=== PATIENT | male | born 1995 | race Two or more races ===

== ENCOUNTER 2025-03-31 22:47 | Emergency (ER) | payer SELFPAY ==
[~2025-03-31] VITALS: Ht 180.3 cm; Wt 171.7 kg
[2025-03-31] MEDS: HYDROcodone-ACET 10/325MG TAB PO ONE (23:15)
--- NOTE | 2025-03-31 23:16 | ED.PDOC ---
GI ASSESSMENT HPI Comments 29-year-old male who came to ER for flank pain/abdominal pain. Patient denies any medical problems or abdominal surgeries. States for the past week, he has been having intermittent episodes of right flank pain, radiating to his right upper quadrant, which worsens after meals, or whenever he stands up. Denies any dysuria or gross hematuria, but states he feels a pressure on his right flank whenever he urinates. Denies any fever nausea or vomiting. Chief Complaint: Flank Pain Time Seen by MD: 23:15 Reviewed Notes: Nurses Notes Allergies: Coded Allergies: No Known Drug Allergy (Verified Allergy, Unknown, 03/31/25) Home Meds Active Scripts Sulfamethoxazole W/Trimethopri (Bactrim Ds Tablet) 1 Tab Tb, 1 TAB PO BID for 7 Days, #14 TAB Prov:LEWIS ROMERO MD 04/01/25 Amlodipine Besylate (Amlodipine Besylate) 5 Mg Tab, 1 TAB PO DAILY, #90 TAB 3 Refills Prov:LEWIS ROMERO MD 04/01/25 Amlodipine Besylate (Amlodipine Besylate) 5 Mg Tab, 1 TAB PO DAILY, #90 TAB 3 Refills Prov:LEWIS ROMERO MD 04/01/25 Sulfamethoxazole W/Trimethopri (Bactrim Ds Tablet) 1 Tab Tb, 1 TAB PO BID for 7 Days, #14 TAB Prov:LEWIS ROMERO MD 04/01/25 Information Source: Patient Mode of Arrival: Ambulatory Timing: Days Duration: Intermittent Quality: Other (Pressure) Vomitus: None Stool: Normal Severity: Moderate Recent: None Recent Hx of: None Pain Location: RUQ, Other (Right flank) Associated sign and symptoms: Abdominal Pain Past Medical History PAST MEDICAL HISTORY: Denies Surgical History: Denies all surgeries Family History Family History: Reviewed,noncontributory to illness Social History Smoker: Non-Smoker Alcohol: Denies ETOH Use Drugs: Denies Drug Use Lives In: Home Constitutional: denies: chills, diaphoresis, fatigue, fever, malaise, sweats, weakness, others EENTM: denies: blurred vision, double vision, ear bleeding, ear discharge, ear drainage, ear pain, ear ringing, eye pain, eye redness, hearing loss, mouth pain, mouth swelling, nasal discharge, nose bleeding, nose congestion, nose pain, photophobia, tearing, throat pain, throat swelling, voice changes, others Respiratory: denies: cough, hemoptysis, orthopnea, SOB at rest, shortness of breath, SOB with excertion, stridor, wheezing, others Cardiovascular: denies: chest pain, dizzy spells, diaphoresis, Dyspnea on exertion, edema, irregular heart beat, left arm pain, lightheadedness, palpitations, PND, syncope, others Gastrointestinal: reports: abdominal pain (Right upper quadrant); denies: abdomen distended, blood streaked bowels, constipated, diarrhea, dysphagia, difficulty swallowing, hematemesis, melena, nausea, poor appetite, poor fluid intake, rectal bleeding, rectal pain, vomiting, others Genitourinary: reports: flank pain (Right); denies: burning, dysuria, frequency, hematuria, incontinence, penile discharge, penile sore, pain, testicle pain, testicle swelling, urgency, others Neurological: denies: dizziness, fainting, headache, left sided numbness, left sided weakness, numbness, paresthesia, pre-existing deficit, right sided numbness, right sided weakness, seizure, speech problems, tingling, tremors, weakness, others Musculoskeletal: denies: back pain, gout, joint pain, joint swelling, muscle pain, muscle stiffness, neck pain, others Integumetry: denies: bruises, change in color, change in hair/nails, dryness, laceration, lesions, lumps, rash, wounds, others Allergic/Immunocompromised: denies: Difficulty Healing, Frequent Infections, Hives, Itching, others Hematologic/Lymphatic: denies: anemia, blood clots, easy bleeding, easy bruising, swollen glands, others Endocrine: denies: excessive hunger, excessive sweating, excessive thirst, excessive urination, flushing, intolerance to cold, intolerance to heat, unexplained weight gain, unexplained weight loss, others Psychiatric: denies: anxiety, bipolar disorder, depression, hopeless, panic disorder, schizophrenia, sleepless, suicidal, others Physical Exam General Appearance: No Apparent Distress, Normal HEENT: Normal ENT Inspection, Pharynx Normal, TMs Normal Neck: Full Range of Motion, Non-Tender, Normal, Normal Inspection Respiratory: Chest Non-Tender, Lungs Clear, No Accessory Muscle Use, No Respiratory Distress, Normal Breath Sounds Cardiovascular: No Edema, No JVD, No Murmur, No Gallop, Normal Peripheral Pulses, Regular Rate/Rhythm Breast Exam: Deferred Gastrointestinal: No Organomegaly, Non Tender, No Pulsatile Mass, Normal Bowel Sounds, Soft Genitalia: Deferred Pelvic: Deferred Rectal: Deferred Extremities: No calf tenderness, Normal capillary refill, Normal inspection, Normal range of motion, Non-tender, No pedal edema Musculoskeletal : Apperance: Normal Neurologic: Alert, rack puncher II-XII nml as Tested, No Motor Deficits, Normal Affect, Normal Mood, No Sensory Deficits Cerebellar Function: Normal Reflexes: Normal Skin: Dry, Normal Color, Warm Lymphatic: No Adenopathy Was a procedure done? Was a procedure done?: No GI differential Dx Differential Diagnosis: Cholecystitis, Diverticular disease, Gastritis/PUD, Gastroenteritis, Hernia, Hepatitis, Pancreatitis, UTI, Urolithiasis X-Ray, Labs, Meds, VS Vital Signs Date Time Temp Pulse Resp B/P (MAP) Pulse Ox O2 Delivery O2 Flow Rate FiO2 04/01/25 02:00 173/105 04/01/25 01:59 103 18 98 Room Air 04/01/25 01:10 98.3 104 16 163/112 (129) 95 98.3 03/31/25 22:49 98.6 125 22 151/105 96 98.6 Lab Test 03/31/25 23:11 03/31/25 23:00 Range/Units White Blood Count 11.1 H 4.4-10.8 10^3/uL Red Blood Count 5.79 4.5-5.90 10^6/uL Hemoglobin 13.6 13.5-17.5 g/dL Hematocrit 41.8 41.0-53.0 % Mean Corpuscular Volume 72.1 L 80.0-100.0 fL Mean Corpuscular Hemoglobin 23.5 L 28.0-32.0 pg Mean Corpuscular Hemoglobin Concent 32.6 32.0-36.0 g/dL Red Cell Distribution Width 15.4 H 11.8-14.3 % Platelet Count 332 140-450 10^3/uL Mean Platelet Volume 7.8 6.9-10.8 fL Neutrophils (%) (Auto) 63.5 37.0-80.0 % Lymphocytes (%) (Auto) 31.2 10.0-50.0 % Monocytes (%) (Auto) 3.5 0.0-12.0 % Eosinophils (%) (Auto) 1.4 0.0-7.0 % Basophils (%) (Auto) 0.4 0.0-2.0 % Neutrophils # (Auto) 7.0 1.6-8.6 10 ^3/uL Lymphocytes # (Auto) 3.4 0.4-5.4 10 ^3/uL Monocytes # (Auto) 0.4 0-1.3 10 ^3/uL Eosinophils # (Auto) 0.1 0-0.8 10 ^3/uL Basophils # (Auto) 0 0-0.2 10 ^3/uL Nucleated Red Blood Cells 0.0 % Sodium Level 138 136-145 mmol/L Potassium Level 3.2 L 3.5-5.1 mmol/L Chloride Level 102 98-107 mmol/L Carbon Dioxide Level 24 20-31 mmol/L Anion Gap 12 5-15 Blood Urea Nitrogen 10 9-23 mg/dL Creatinine 1.17 0.700-1.30 mg/dL Glomerular Filtration Rate Calc 85 >90 mL/min BUN/Creatinine Ratio 8.5 L 10.0-20.0 Serum Glucose 149 H 74-106 mg/dL Calcium Level 9.4 8.7-10.4 mg/dL Total Bilirubin 0.3 0.2-1.0 mg/dL Aspartate Amino Transferase (AST) 36 13-40 U/L Alanine Aminotransferase (ALT) 29 7-40 U/L Alkaline Phosphatase 123 H 46-116 U/L Total Protein 9.3 H 5.7-8.2 g/dL Albumin 4.4 3.2-4.8 g/dL Lipase 41 12-53 U/L Urine Color Yellow Yellow Urine Clarity Turbid H Clear Urine pH 6.0 5.0-9.0 Urine Specific [place] 1.025 1.001-1.035 Urine Protein 3+ H Negative Urine Ketones Negative Negative Urine Blood 2+ H Negative /uL Urine Nitrite Negative Negative Urine Bilirubin Negative Negative Urine Urobilinogen Normal Negative mg/dL Urine Leukocyte Esterase 1+ Negative /uL Urine RBC 72 0 - 3 /hpf Urine Microscopic WBC 35 H 0-3 /HPF Urine Squamous Epithelial Cells Few <5 /hpf Urine Bacteria None seen None Seen /hpf Urine Hyaline Casts Mod 0 - 2 /lpf Urine Granular Casts Mod 0 /lpf Urine Glucose Normal Normal mg/dL Current Medications Medications (Trade) Dose Ordered Sig/Sarika Route Start Time Stop Time Status Last Admin Acetaminophen/ Hydrocodone Bitart ([place] 10/325MG Tab) 1 tab ONCE ONCE PO 03/31/25 23:15 03/31/25 23:16 DC 03/31/25 23:15 Lisinopril (Zestril Tablet) 20 mg ONCE ONCE PO 04/01/25 01:30 04/01/25 01:31 DC 04/01/25 02:00 Ceftriaxone Sodium (Rocephin) 1,000 mg ONCE ONCE IM 04/01/25 01:30 04/01/25 01:31 DC 04/01/25 01:59 Potassium Chloride (Klor-Con Tablet) 10 meq ONCE ONCE PO 04/01/25 01:30 04/01/25 01:31 DC 04/01/25 01:59 Exam: CT CT AB PEL WO CON-NO ORAL OR IV History: right flank pain Comparison Study: None TECHNIQUE: Multidetector CT of the abdomen was performed from lung bases to pubic symphysis. Imaging was performed without IV contrast. Axial, coronal and sagittal multiplanar reformats were obtained from the axial data set by the technologist. Radiation Dose Information: CT Dose: CTDI volume is 27.85 mGy. Dose-length product is 1718.53 mGy*cm FINDINGS: Evaluation of solid organs is limited due to lack of intravenous contrast use. Findings: Lung Bases: No acute or significant lung base finding. Normal heart size. No pleural or pericardial effusion. Liver: The liver is increased in size. minimal hepatic steatosis. No focal lesions. Gallbladder and Biliary Tree: Unremarkable Spleen: Unremarkable Pancreas: The pancreas is grossly normal in appearance. Adrenal Glands: Unremarkable Kidneys: Kidneys are grossly normal without calculi or hydronephrosis. Bladder: Grossly unremarkable for degree of distention. Bowel: The stomach is grossly normal in appearance. Small bowel and colon are normal in caliber and distribution. The appendix is normal. Ascites: Absent Lymphadenopathy: No mesenteric, retroperitoneal or periportal lymphadenopathy. Abdominal Wall and Mesentery: Unremarkable. Vasculature: The visualized abdominal aorta is normal in size and caliber. Evaluation of abdominal and pelvic vessels is limited due to lack of intravenous contrast. Pelvic Organs: Unremarkable Musculoskeletal: No aggressive focal bony lesions, acute fractures or dislocation. Soft tissues: Unremarkable IMPRESSION: 1. No acute abdominal or pelvic finding. Time of 1ST Reevaluation: 23:12 Reevaluation 1ST: Unchanged Patient Education/Counseling: Diagnosis, Treatment Family Education/Counseling: Diagnosis, Treatment SEPSIS Sepsis Screen Date sepsis recognized/suspect: Mar 31, 2025 Time Sepsis recognized/suspect: 2251 Recent Procedure: No On Antibiotic Therapy: No Respiratory Rate >20: No Heart Rate >90: No Temp<36 C (96.8 F) or >38.3 C: No SBP <90 or MAP <65 mmHG: No New Acute Mental Status Change: No Is the patient on CPAP, BIPAP,: No Physician Orders Ct Ab Pel Wo Con-No Oral Or Iv (03/31/25 23:04) Vital Signs Date Time Temp Pulse Resp B/P (MAP) Pulse Ox O2 Delivery O2 Flow Rate FiO2 04/01/25 02:00 173/105 04/01/25 01:59 103 18 98 Room Air 04/01/25 01:10 98.3 104 16 163/112 (129) 95 98.3 03/31/25 22:49 98.6 125 22 151/105 96 98.6 Laboratory Tests Test 03/31/25 23:11 White Blood Count 11.1 10^3/uL (4.4-10.8) H Medications Medications Dose Ordered Sig/Sarika Route Start Time Stop Time Status Last Admin Dose Admin Acetaminophen/ Hydrocodone Bitart 1 tab ONCE ONCE PO 03/31/25 23:15 03/31/25 23:16 DC 03/31/25 23:15 Ceftriaxone Sodium 1,000 mg ONCE ONCE IM 04/01/25 01:30 04/01/25 01:31 DC 04/01/25 01:59 Lisinopril 20 mg ONCE ONCE PO 04/01/25 01:30 04/01/25 01:31 DC 04/01/25 02:00 Potassium Chloride 10 meq ONCE ONCE PO 04/01/25 01:30 04/01/25 01:31 DC 04/01/25 01:59 Departure 1 Departure Time of Disposition: 01:00 Impression: Primary Impression: Right flank pain Additional Impressions: UTI (urinary tract infection) Hypertension Disposition: 01 HOME / SELF CARE / HOMELESS Condition: Stable e-Prescriptions Sulfamethoxazole W/Trimethopri (Bactrim Ds Tablet) 1 Tab Tb 1 TAB PO BID for 7 Days, #14 TAB Prov: LEWIS ROMERO MD 04/01/25 Amlodipine Besylate (Amlodipine Besylate) 5 Mg Tab 1 TAB PO DAILY, #90 TAB 3 Refills Prov: LEWIS ROMERO MD 04/01/25 Amlodipine Besylate (Amlodipine Besylate) 5 Mg Tab 1 TAB PO DAILY, #90 TAB 3 Refills Prov: LEWIS ROMERO MD 04/01/25 Sulfamethoxazole W/Trimethopri (Bactrim Ds Tablet) 1 Tab Tb 1 TAB PO BID for 7 Days, #14 TAB Prov: LEWIS ROMERO MD 04/01/25 Discharged With: Self Critical Care Note Critical Care Time?: No Stability Stability form required: No Heart Score Heart Score: Heart Score Response (Comments) Value History N/A 0 EKG N/A 0 Age N/A 0 Risk Factors N/A 0 Troponin N/A 0 Total 0 I personally scribed for LEWIS ROMERO MD ([email or web address]) on 03/31/25 at 23:16. Electronically submitted by Jaquan Hooker ([email or web address] I personally scribed for LEWIS ROMERO MD ([email or web address]) on 04/01/25 at 01:23. Electronically submitted by Jaquan Hooker ([email or web address]). LEWIS ROMERO MD Mar 31, 2025 23:16
[2025-03-31 23:32] LABS: Hematocrit 41.8 % (41.0-53.0); Hemoglobin 13.6 g/dL (13.5-17.5); Mean Corpuscular Hemoglobin 23.5 pg (28.0-32.0); Mean Corpuscular Volume 72.1 fL (80.0-100.0); Nucleated Red Blood Cells % 0.0 %
[2025-03-31 23:51] LABS: Alanine Aminotransferase 29 U/L (7-40); Albumin 4.4 g/dL (3.2-4.8); Anion Gap 12 (5-15); BUN/Creatinine Ratio 8.5 (10.0-20.0); Bilirubin, Total 0.3 mg/dL (0.2-1.0); Blood Urea Nitrogen 10 mg/dL (9-23); Calcium 9.4 mg/dL (8.7-10.4); Carbon Dioxide 24 mmol/L (20-31); Chloride 102 mmol/L (98-107); Lipase 41 U/L (12-53); Sodium 138 mmol/L (136-145)
[2025-03-31 23:53] LABS: Alkaline Phosphatase 123 U/L (46-116); Glucose 149 mg/dL (74-106); Potassium 3.2 mmol/L (3.5-5.1); Total Protein 9.3 g/dL (5.7-8.2)
[2025-04-01 00:22] LABS: Urine Protein, UAD 3+ (Negative)
--- NOTE | 2025-04-01 00:49 | DVH ---
Exam: CT CT AB PEL WO CON-NO ORAL OR IV History: right flank pain Comparison Study: None TECHNIQUE: Multidetector CT of the abdomen was performed from lung bases to pubic symphysis. Imaging was performed without IV contrast. Axial, coronal and sagittal multiplanar reformats were obtained fr om the axial data set by the technologist. Radiation Dose Information: CT Dose: CTDI volume is 27.85 mGy. Dose-length product is 1718.53 mGy*cm FINDINGS: Evaluation of solid organs is limited due to lack of intravenous contrast use. Findings: Lung Bases: No acute or significant lung base finding. Normal heart size. No pleural or pericardial effusion. Liver: The liver is increased in size. minimal hepatic steatosis. No focal lesions. Gallbladder and Biliary Tree: Unremarkable Spleen: Unremarkable Pancreas: The pancreas is grossly normal in appearance. Adrenal Glands: Unremarkable Kidneys: Kidneys are grossly normal without calculi or hydronephrosis. Bladder: Grossly unremarkable for degree of distention. Bowel: The stomach is grossly normal in appearance. Small bowel and colon are normal in caliber and d istribution. The appendix is normal. Ascites: Absent Lymphadenopathy: No mesenteric, retroperitoneal or periportal lymphadenopathy. Abdominal Wall and Mesentery: Unremarkable. Vasculature: The visualized abdominal aorta is normal in size and caliber. Evaluation of abdominal a nd pelvic vessels is limited due to lack of intravenous contrast. Pelvic Organs: Unremarkable Musculoskeletal: No aggressive focal bony lesions, acute fractures or dislocation. Soft tissues: Unremarkable IMPRESSION: 1. No acute abdominal or pelvic finding.
[2025-04-01 01:10] VITALS: BP 163/112; TEMP 98.3
[2025-04-01] MEDS ORDERED: BACDST PO (01:22)
[2025-04-01] MEDS ORDERED: AMLO1TAB22 PO (01:22)
[2025-04-01 01:59] VITALS: PULSE 103; RESP 18; O2SAT 98
[2025-04-01] MEDS: cefTRIAXone SOD 1,000 MG VL IM ONE (01:59)
[2025-04-01] MEDS: POTASSIUM CHL 10 Meq TABLET PO ONE (01:59)
[2025-04-01] MEDS: LISINOPRIL 20 MG TAB PO ONE (02:00)
== END 2025-04-01 02:09 | disposition home or self-care (01) ==
LOC: ER 22:47
DX: R10.11 Right upper quadrant pain (principal); N39.0 Urinary tract infection, site not specified; I10 Essential (primary) hypertension
CPT/HCPCS: 36415; 74176; 80053; 81001; 83690; 85025; 96372; 99285; J0696

== ENCOUNTER 2025-07-22 03:28 | Emergency (ER) | payer SELFPAY ==
[~2025-07-22] VITALS: Ht 180.3 cm; Wt 172.0 kg
[~2025-07-22 03:28] MED LIST: AMLO1TAB22 PO; BACDST PO
--- NOTE | 2025-07-22 03:44 | ED.PDOC ---
History of Present Illness HPI Comments 29-year-old male who came to ER with [facility] for prison check. Patient is morbidly obese, brought in for prison check, high blood pressure. Patient laying handcuffed on the backseat of a police cruiser. Patient refuses to be seen and refuses any exams to be done on him Chief Complaint: Nursing Home Check Time Seen by MD: 03:43 Primary Care Provider: DIONI Hartman Notes: Nurses Notes Allergies: Coded Allergies: No Known Drug Allergy (Verified Allergy, Unknown, 03/31/25) Home Meds Active Scripts Sulfamethoxazole W/Trimethopri (Bactrim Ds Tablet) 1 Tab Tb, 1 TAB PO BID for 7 Days, #14 TAB Prov:LEWIS ROMERO MD 04/01/25 Amlodipine Besylate (Amlodipine Besylate) 5 Mg Tab, 1 TAB PO DAILY, #90 TAB 3 Refills Prov:LEWIS ROMERO MD 04/01/25 Amlodipine Besylate (Amlodipine Besylate) 5 Mg Tab, 1 TAB PO DAILY, #90 TAB 3 Refills Prov:LEWIS ROMERO MD 04/01/25 Sulfamethoxazole W/Trimethopri (Bactrim Ds Tablet) 1 Tab Tb, 1 TAB PO BID for 7 Days, #14 TAB Prov:LEWIS ROMERO MD 04/01/25 Information Source: Patient Mode of Arrival: SO Past Medical History PAST MEDICAL HISTORY: Denies Past Medical History (Other): Morbid obesity Surgical History: Denies all surgeries Family History Family History: Reviewed,noncontributory to illness Social History Smoker: Non-Smoker Alcohol: Denies ETOH Use Drugs: Denies Drug Use Lives In: Home Constitutional: denies: chills, diaphoresis, fatigue, fever, malaise, sweats, weakness, others EENTM: denies: blurred vision, double vision, ear bleeding, ear discharge, ear drainage, ear pain, ear ringing, eye pain, eye redness, hearing loss, mouth pain, mouth swelling, nasal discharge, nose bleeding, nose congestion, nose pain, photophobia, tearing, throat pain, throat swelling, voice changes, others Respiratory: denies: cough, hemoptysis, orthopnea, SOB at rest, shortness of breath, SOB with excertion, stridor, wheezing, others Cardiovascular: denies: chest pain, dizzy spells, diaphoresis, Dyspnea on exertion, edema, irregular heart beat, left arm pain, lightheadedness, palpitations, PND, syncope, others Gastrointestinal: denies: abdomen distended, abdominal pain, blood streaked bowels, constipated, diarrhea, dysphagia, difficulty swallowing, hematemesis, melena, nausea, poor appetite, poor fluid intake, rectal bleeding, rectal pain, vomiting, others Genitourinary: denies: burning, dysuria, flank pain, frequency, hematuria, incontinence, penile discharge, penile sore, pain, testicle pain, testicle swelling, urgency, others Neurological: denies: dizziness, fainting, headache, left sided numbness, left sided weakness, numbness, paresthesia, pre-existing deficit, right sided numbness, right sided weakness, seizure, speech problems, tingling, tremors, weakness, others Musculoskeletal: denies: back pain, gout, joint pain, joint swelling, muscle pain, muscle stiffness, neck pain, others Integumetry: denies: bruises, change in color, change in hair/nails, dryness, laceration, lesions, lumps, rash, wounds, others Allergic/Immunocompromised: denies: Difficulty Healing, Frequent Infections, Hives, Itching, others Hematologic/Lymphatic: denies: anemia, blood clots, easy bleeding, easy bruising, swollen glands, others Endocrine: denies: excessive hunger, excessive sweating, excessive thirst, excessive urination, flushing, intolerance to cold, intolerance to heat, unexplained weight gain, unexplained weight loss, others Psychiatric: denies: anxiety, bipolar disorder, depression, hopeless, panic disorder, schizophrenia, sleepless, suicidal, others Physical Exam General Appearance: No Apparent Distress, Normal HEENT: Normal ENT Inspection, Pharynx Normal, TMs Normal Neck: Full Range of Motion, Non-Tender, Normal, Normal Inspection Respiratory: Chest Non-Tender, Lungs Clear, No Accessory Muscle Use, No Respiratory Distress, Normal Breath Sounds Cardiovascular: No Edema, No JVD, No Murmur, No Gallop, Normal Peripheral Pulses, Regular Rate/Rhythm Breast Exam: Deferred Gastrointestinal: No Organomegaly, Non Tender, No Pulsatile Mass, Normal Bowel Sounds, Soft Genitalia: Deferred Pelvic: Deferred Rectal: Deferred Extremities: No calf tenderness, Normal capillary refill, Normal inspection, Normal range of motion, Non-tender, No pedal edema Musculoskeletal : Apperance: Normal Neurologic: Alert, pattern puncher II-XII nml as Tested, No Motor Deficits, Normal Affect, Normal Mood, No Sensory Deficits Cerebellar Function: Normal Reflexes: Normal Skin: Dry, Normal Color, Warm Lymphatic: No Adenopathy Was a procedure done? Was a procedure done?: No Differential Dx Considerations may include: Morbid obesity, prison check, medical clearance for incarceration X-Ray, Labs, Meds, VS Vital Signs Date Time Temp Pulse Resp B/P (MAP) Pulse Ox O2 Delivery O2 Flow Rate FiO2 07/22/25 04:42 120 18 177/97 (123) 98 07/22/25 04:42 120 18 93 Room Air* 0 21 07/22/25 04:00 98.3 121 18 177/97 92 98.3 Time of 1ST Reevaluation: 03:39 Reevaluation 1ST: Unchanged Patient Education/Counseling: Diagnosis, Treatment Family Education/Counseling: No Family Present Comments Patient and has hypertension. However he admittedly is noncompliant to his medications. He has no symptoms. He is brought here for blood pressure checkup. Patient declined any kind of examination or testing to be done. He also declined any treatments. However he is very aggressive and combative with shared of officer. I will try to calm the patient by giving him a dose of Haldol and Benadryl in order to prevent him from having to be physically subdued and potentially injured by law enforcement. 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 Electronically submitted by Jaquan Hooker ([facility]). EDOUARD MACDONALD MD Jul 22, 2025 03:44
[2025-07-22] MEDS: diphenhydrAMINE HCL 50 MG/1 ML VL ONE (03:50)
[2025-07-22 04:00] VITALS: TEMP 98.3
[2025-07-22] MEDS ORDERED: diphenhydrAMINE HCL 50 MG/1 ML VL IM ONE (04:00)
[2025-07-22] MEDS ORDERED: HALOPERIDOL LACTATE 5 MG/ML INJ VIAL IM ONE (04:00)
[2025-07-22] MEDS: HALOPERIDOL LACTATE 5 MG/ML INJ VIAL ONE (04:41)
[2025-07-22 04:42] VITALS: BP 177/97; PULSE 120; RESP 18; O2SAT 93
== END 2025-07-22 05:01 | disposition home or self-care (01) ==
LOC: EDBD 03:28 → ER 03:28
DX: F91.9 Conduct disorder, unspecified (principal); I10 Essential (primary) hypertension; Z91.199 Patient's noncompliance with other medical treatment and regimen due to unspecified reason

== ENCOUNTER 2025-07-22 06:39 | Emergency (ER) | payer SELFPAY ==
[~2025-07-22] VITALS: Ht 182.9 cm
--- NOTE | 2025-07-22 07:24 | ED.PDOC ---
Altered Mental Status HPI Comments 29 y.o male with PMHx of schizophrenia, presents to the ED via EMS for an evaluation of altered mental status. Patient was seen at this facility earlier today d/t care home check and hypertensive episode. He was combative and verbally aggressive with alvina. In the ED, patient was given Haldol and Benadryl and transported by alvina back to care home however medical doctor deemed patient unresponsive and was sent back to the ED with alvina via EMS. [facility] reports patient has episodes where he will be sleeping and wake up combative. He was able to ambulate out of the alvina's vehicle and onto EMS gurney. Upon ED arrival, patient is asleep at bedside. EMS mentions patient was also combative with them on transportation. Patient remains hypertensive with most recent reading BP of 166/131 at bedside. Time Seen by MD: 07:13 Primary Care Provider: DIONI Reviewed Notes: Nurses Notes, Garbage Man Notes, Medications, Allergies Allergies: Coded Allergies: No Known Drug Allergy (Verified Allergy, Unknown, 03/31/25) Home Meds Active Scripts Sulfamethoxazole W/Trimethopri (Bactrim Ds Tablet) 1 Tab Tb, 1 TAB PO BID for 7 Days, #14 TAB Prov:LEWIS ROMERO MD 04/01/25 Amlodipine Besylate (Amlodipine Besylate) 5 Mg Tab, 1 TAB PO DAILY, #90 TAB 3 Refills Prov:LEWIS ROMERO MD 04/01/25 Amlodipine Besylate (Amlodipine Besylate) 5 Mg Tab, 1 TAB PO DAILY, #90 TAB 3 Refills Prov:LEWIS ROMERO MD 04/01/25 Sulfamethoxazole W/Trimethopri (Bactrim Ds Tablet) 1 Tab Tb, 1 TAB PO BID for 7 Days, #14 TAB Prov:LEWIS ROMERO MD 04/01/25 Information Source: Emergency Med Personnel Mode of Arrival: EMS Past Medical History PAST MEDICAL HISTORY: Schizophrenia Surgical History: Unobtainable Family History Family History: Unobtainable Social History Smoker: Unobtainable Alcohol: Unobtainable Drugs: Unobtainable Lives In: Unobtainable Psychiatric: reports: schizophrenia Unable to Obtain due to: Other (patient asleep- unable to obtain at this time) Physical Exam Exam Comments Patient morbidly obese with snoring respirations on gurney. Officer at bedside. Patient does not wake up to my voice. While at bedside patient wakes up briefly for a few sec and falls back asleep General Appearance: No Apparent Distress, Obese HEENT: Normal ENT Inspection, Pharynx Normal Neck: Full Range of Motion, Normal, Normal Inspection Respiratory: Chest Non-Tender, Lungs Clear, No Accessory Muscle Use, No Respiratory Distress, Normal Breath Sounds Cardiovascular: No Edema, Normal Peripheral Pulses, Regular Rate/Rhythm Breast Exam: Deferred Gastrointestinal: No Organomegaly, No Pulsatile Mass, Normal Bowel Sounds, Soft Genitalia: Deferred Pelvic: Deferred Rectal: Deferred Extremities: No calf tenderness, Normal capillary refill, Normal inspection, Normal range of motion, Non-tender, No pedal edema Musculoskeletal : Apperance: Normal Neurologic: Depressed Affect, Disoriented Cerebellar Function: Unable to Test Reflexes: NOT DONE Skin: Dry, Normal Color, Warm Lymphatic: No Adenopathy Was a procedure done? Was a procedure done?: No Differential Diagnosis (ALOC) Differential Diagnosis: Dehydration, Closed Head Injury, Drug Overdose, ETOH Intoxication X-Ray, Labs, Meds, VS Vital Signs Date Time Temp Pulse Resp B/P (MAP) Pulse Ox O2 Delivery O2 Flow Rate FiO2 07/22/25 09:00 98.2 102 19 181/98 (125) 97 98.2 07/22/25 08:09 97 Room Air* 0 21 07/22/25 07:45 163/80 07/22/25 07:35 97.9 97 21 163/80 (107) 98 97.9 07/22/25 06:39 97.8 97 16 161/112 100 97.8 29-year-old male brought in from care home for care home check. Patient initially was seen in our ER just a few hours ago for okay to book. At that time he was noted to be combative with police and hospitalist staff and therefore was given Haldol and Benadryl by Dr. Maya. When he arrived to the care home, medical staff found him unresponsive and sent him back to the ER. I reviewed the note from this morning. Seems patient was awake but refused treatment at that time but was combative and thus was given Haldol and Benadryl. At this time on examination he has snoring respirations in the [place]. He is morbidly obese. Officers at bedside. Patient does not wake up to my voice. However I did see him wake up very briefly for a few sec with eyes open and fell back asleep. At this time have ordered CBC, BMP ETOH level, UDS and a CT scan of the brain to medical care of the patient. Patient agitated uncooperative with the obtaining blood work. Throughout his ED stay patient wakes up briefly for 30 seconds and then falls back asleep. I also wrote for hydralazine IV for blood pressure control however patient refuses to have an IV performed. At this time patient pupils were also found to be pinpoint. Patient is given Narcan. Patent and continues to be sleepy but he is much more awake. He was able to answer my questions drink water. Patient is aware that we are in the hospital believes we are in [facility] knows it is July 2025. He was able to answer questions fully. At this time I have discharged him back to care home. Patient is medically cleared. Time of 1ST Reevaluation: 07:20 Reevaluation 1ST: Unchanged Patient Education/Counseling: Other (Poor historian- asleep at bedside) Family Education/Counseling: No Family Present SEPSIS Sepsis Screen Physician Orders Complete Blood Count (07/22/25 07:43) Engineering Scientist (07/22/25 07:43) Blood Alcohol (07/22/25 07:43) Head Without Contrast (07/22/25 07:43) Basic Metabolic Panel (07/22/25 07:43) Drug Screen (07/22/25 07:43) Vital Signs Date Time Temp Pulse Resp B/P (MAP) Pulse Ox O2 Delivery O2 Flow Rate FiO2 07/22/25 09:00 98.2 102 19 181/98 (125) 97 98.2 07/22/25 08:09 97 Room Air* 0 21 07/22/25 07:45 163/80 07/22/25 07:35 97.9 97 21 163/80 (107) 98 97.9 07/22/25 06:39 97.8 97 16 161/112 100 97.8 Departure 1 Departure Time of Disposition: 11:06 Impression: Primary Impression: Altered mental status Qualified Codes: R41.0 - Disorientation, unspecified Additional Impressions: 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 Electronically submitted by Ashli Warren ([facility]). I personally scribed for AVTAR RODNEY MD ([email or web address]) on 07/22/25 at 07:31. Electronically submitted by Ashli Warren ([facility]). I personally scribed for AVTAR RODNEY MD ([email or web address]) on 07/22/25 at 07:31. Electronically submitted by Ashli Warren ([facility]). AVTAR RODNEY MD Jul 22, 2025 07:24
[2025-07-22] MEDS: hydrALAZINE HCL 20 MG/ML VL IV ONE (07:45)
[2025-07-22 08:09] VITALS: O2SAT 97
[2025-07-22 09:00] VITALS: BP 181/98; PULSE 102; RESP 19; TEMP 98.2; O2SAT 97
== END 2025-07-22 11:21 ==
LOC: ER 06:39 → EDBD 06:39 → ER 11:21
DX: R41.82 Altered mental status, unspecified (principal); F91.9 Conduct disorder, unspecified; F20.9 Schizophrenia, unspecified; I10 Essential (primary) hypertension